=== PATIENT | male | born 1960 | race Caucasian/White ===

== ENCOUNTER → 2018-09-17 | Outpatient (CLI) | payer OTHER, SELFPAY ==
[2018-09-17 08:30] VITALS: BMI 34.4
[2018-09-17 12:36] LABS: Absolute Lymphocyte Count 2.12 X10^3/ul (0.83-4.51); Absolute Neutrophil Count 3.4 X10^3/uL (2.0-7.7); Basophil# 0.05 X10^3/uL; Basophil% 0.8 % (0-1); Eosinophil# 0.22 X10^3/uL; Eosinophils% 3.3 % (0-5); Hematocrit 44.1 % (40-54); Lymphocyte # 2.12 X10^3/ul (4.0); Lymphocyte % 32.2 % (19-41); Mean Corpuscular Hgb 30.4 pg (27.0-32.0); Mean Corpuscular Volume 89.5 fL (80-94); Monocyte# 0.76 X10^3/uL; Monocyte% 11.5 % (0-10); Neutrophil # 3.44 X10^3/uL (2.7-7.7); Neutrophil % 52.2 % (47-70); Platelet Count 221 K/mm3 (150-450); RBC Distribution Width CV 12.6 % (11.6-14.6); RBC Distribution Width SD 40.9 fl (35.1-43.9); Red Blood Count 4.93 M/mm3 (4.6-6.2); White Blood Count 6.6 K/mm3 (4.4-11.0)
[2018-09-17 12:44] LABS: POSITIVE COUNT NO; POSITIVE DIFFERENTIAL NO; POSITIVE MORPHOLOGY NO
[2018-09-17 12:45] LABS: AST(SGOT) 24 U/L (15-37); Alanine Aminotransfer ALT/SGPT 43 U/L (16-61); Albumin, Serum 3.6 g/dL (3.2-5.0); Alkaline Phosphatase 77 U/L (45-117); Anion Gap 8 (5-15); BUN 15 mg/dL (7-18); BUN/Creat Ratio 15.2 RATIO (10-20); Calcium,Total 8.3 mg/dL (8.5-10.1); Chloride 104 mmol/L (98-107); Cholesterol 152 mg/dL (200); Creatinine, Serum 0.99 mg/dL (0.70-1.30); EST Glomerular Filtration Rate 83 mL/min (>60); Est Glom Filt Rate - Afr Amer 100 mL/min (>60); Globulin 3.6 g/dL (2.2-4.2); Glucose 109 mg/dL (74-106); High Density Lipoprotein 32 mg/dL; Potassium 4.1 mmol/L (3.5-5.1); Protein, Total 7.2 g/dL (6.4-8.2); Sodium Level 137 mmol/L (136-145); Triglycerides 108 mg/dL; Very Low Density Lipoprotein 22 mg/dL (5-40)
== END | disposition home or self-care (01) ==
LOC: BIMLAB 08:54
PROVIDERS: Family Provider Family Medicine; PCP Family Medicine; Visit Provider Family Medicine
DX: G25.81 Restless legs syndrome (principal); G62.9 Polyneuropathy, unspecified
CPT/HCPCS: 36415; 80053; 80061; 85025

== ENCOUNTER → 2020-08-25 10:13 | Outpatient (CLI) | payer OTHER, SELFPAY ==
[2020-08-11 16:31] VITALS: BMI 34.4
[2020-08-25 12:45] LABS: ALB/GLOB Ratio 0.9 RATIO (0.9-2.4); AST(SGOT) 25 U/L (15-37); Alanine Aminotransfer ALT/SGPT 42 U/L (16-61); Albumin, Serum 3.5 g/dL (3.2-5.0); Alkaline Phosphatase 71 U/L (45-117); Anion Gap 6 (5-15); BUN 19 mg/dL (7-18); BUN/Creat Ratio 18.3 RATIO (10-20); Calcium,Total 8.7 mg/dL (8.5-10.1); Chloride 107 mmol/L (98-107); Creatinine, Serum 1.04 mg/dL (0.70-1.30); EST Glomerular Filtration Rate 78 mL/min (>60); Est Glom Filt Rate - Afr Amer 94 mL/min (>60); Globulin 3.8 g/dL (2.2-4.2); Glucose 125 mg/dL (74-106); Potassium 4.3 mmol/L (3.5-5.1); Protein, Total 7.3 g/dL (6.4-8.2); Sodium Level 138 mmol/L (136-145)
== END ==
PROVIDERS: PCP Family Medicine; Referring Provider Family Medicine; Visit Provider Family Medicine
DX: G25.81 Restless legs syndrome (principal)
CPT/HCPCS: 36415; 80053

== ENCOUNTER 2021-07-06 08:01 | Outpatient (CLI) | payer OTHER, SELFPAY ==
[2021-07-06 12:09] LABS: Hematocrit 44.9 % (40-54); Hemoglobin 14.8 g/dL (13.0-16.5); Mean Corpuscular Hgb 31.1 pg (27.0-32.0); Mean Corpuscular Volume 94.3 fL (80-94); Mean Platelet Vol. 9.8 fl (6.2-12.0); Platelet Count 235 K/mm3 (150-450); RBC Distribution Width CV 12.6 % (11.6-14.6); RBC Distribution Width SD 44.1 fl (35.1-43.9); Red Blood Count 4.76 M/mm3 (4.6-6.2); White Blood Count 7.6 K/mm3 (4.4-11.0)
[2021-07-06 12:27] LABS: Vitamin B12 582 pg/mL (211-911)
[2021-07-06 12:34] LABS: ALB/GLOB Ratio 0.9 RATIO (0.9-2.4); AST(SGOT) 22 U/L (15-37); Alanine Aminotransfer ALT/SGPT 44 U/L (16-61); Albumin, Serum 3.5 g/dL (3.2-5.0); Alkaline Phosphatase 68 U/L (45-117); Anion Gap 3 (5-15); BUN 19 mg/dL (7-18); BUN/Creat Ratio 18.3 RATIO (10-20); Calcium,Total 8.2 mg/dL (8.5-10.1); Chloride 107 mmol/L (98-107); Creatinine, Serum 1.04 mg/dL (0.70-1.30); EST Glomerular Filtration Rate 77 mL/min (>60); Est Glom Filt Rate - Afr Amer 94 mL/min (>60); Ferritin 28 ng/mL (26-388); Globulin 3.8 g/dL (2.2-4.2); Glucose 103 mg/dL (74-106); Iron 120 ug/dL (65-175); Magnesium 2.1 mg/dL (1.6-2.6); Potassium 4.2 mmol/L (3.5-5.1); Protein, Total 7.3 g/dL (6.4-8.2); Sodium Level 138 mmol/L (136-145); Thyroid Stim Hormone (TSH) 4.16 uIU/mL (0.358-3.74)
== END 2021-07-06 23:59 | disposition home or self-care (01) ==
LOC: BIMLAB 08:02
PROVIDERS: PCP Family Medicine; Referring Provider Psychiatry & Neurology Neurology; Visit Provider Psychiatry & Neurology Neurology
DX: G25.81 Restless legs syndrome (principal); Z86.2 Personal history of diseases of the blood and blood-forming organs and certain disorders involving the immune mechanism
CPT/HCPCS: 36415; 80053; 82607; 82728; 83540; 83735; 84443; 85027

== ENCOUNTER → 2021-12-21 | Outpatient (CLI) | payer BC, SELFPAY ==
[2021-12-21 13:37] LABS: Cholesterol 153 mg/dL (200); High Density Lipoprotein 32 mg/dL; Triglycerides 126 mg/dL; Very Low Density Lipoprotein 25 mg/dL (5-40)
[2021-12-21 13:53] LABS: T4 Free Direct 1.02 ng/dL (0.76-1.46); Thyroid Stim Hormone (TSH) 2.26 uIU/mL (0.358-3.74)
== END | disposition home or self-care (01) ==
LOC: BIMLAB 10:48
PROVIDERS: Nurse Practitioner Family; PCP Family Medicine; Referring Provider Psychiatry & Neurology Neurology; Visit Provider Psychiatry & Neurology Neurology
DX: E78.5 Hyperlipidemia, unspecified (principal); Z12.5 Encounter for screening for malignant neoplasm of prostate; R79.89 Other specified abnormal findings of blood chemistry
CPT/HCPCS: 36415; 80061; 84153; 84439; 84443; G0103

== ENCOUNTER → 2022-03-13 | Outpatient (CLI) | payer BC, SELFPAY ==
--- NOTE | 2022-03-13 09:13 | RAD_ITS ---
EXAM: XR RIGHT KNEE, 3 VIEWS CLINICAL INDICATION: pain in knees TECHNIQUE: Three views of the right knee. This report was created using [employer] report generation technology. COMPARISON: None. FINDINGS: BONES/JOINTS: Unremarkable. No acute fracture. No subluxation. Normal alignment. Preservation of the joint space. No sclerotic or destructive changes observed. SOFT TISSUES: Unremarkable. No soft tissue swelling or gas. No radiopaque foreign body. RAD/Knee 3 Views IMPRESSION: Negative right knee x-rays. Electronically Signed: Reynaldo Ames MD at 1:18 EST ,
--- NOTE | 2022-03-13 09:14 | RAD_ITS ---
EXAM: XR LEFT KNEE, 3 VIEWS CLINICAL INDICATION: Bilateral knee pain TECHNIQUE: Three views of the left knee. This report was created using [employer] report generation technology. COMPARISON: None. FINDINGS: BONES/JOINTS: Unremarkable. No acute fracture. No subluxation. Normal alignment. Preservation of the joint space. No sclerotic or destructive changes observed. SOFT TISSUES: Unremarkable. No soft tissue swelling or gas. No radiopaque foreign body. RAD/Knee 3 Views IMPRESSION: Negative left knee x-rays. Electronically Signed: Reynaldo Ames MD at 1:19 EST ,
== END | disposition home or self-care (01) ==
PROVIDERS: PCP Family Medicine; Referring Provider Psychiatry & Neurology Neurology; Visit Provider Psychiatry & Neurology Neurology
DX: M25.561 Pain in right knee (principal); M25.562 Pain in left knee
CPT/HCPCS: 73562

== ENCOUNTER → 2022-07-18 | Outpatient (CLI) | payer BC, SELFPAY ==
--- NOTE | 2022-07-18 13:30 | RAD_ITS ---
INDICATION: chronic cough EXAMINATION/TECHNIQUE: X-RAY - XR Chest 2 Views COMPARISON: None. FINDINGS: LINES/DEVICES: None. LUNGS: No consolidation, edema or effusion. No pneumothorax. MEDIASTINUM AND CARDIOVASCULAR STRUCTURES: Cardiac silhouette not enlarged. Central airways and mediastinal contour are unremarkable. BONES AND SOFT TISSUES: No acute findings. RAD/Chest PA and Lateral IMPRESSION: No radiographic evidence of acute cardiopulmonary disease. Electronically Signed: Bhavesh Grey MD at 17:01 EDT ,
== END | disposition home or self-care (01) ==
LOC: MTRAD 13:28
PROVIDERS: PCP Family Medicine; Referring Provider Family Medicine; Visit Provider Family Medicine
DX: R05.3 Chronic cough (principal)
CPT/HCPCS: 71046

== ENCOUNTER → 2024-05-14 | Outpatient (CLI) | payer BC, SELFPAY ==
--- NOTE | 2024-05-14 16:21 | RAD_ITS ---
PROCEDURE: Right foot radiographs REASON FOR EXAM: Pain TECHNIQUE: Three views of the right foot COMPARISON: None FINDINGS: See impression RAD/Foot min 3 Views IMPRESSION: Negative for acute fracture or malalignment. 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 No suspicious erosions. Reading Location: [facility]
--- NOTE | 2024-05-14 16:30 | RAD_ITS ---
PROCEDURE: Left foot radiographs REASON FOR EXAM: Pain TECHNIQUE: Three views of the left foot COMPARISON: None. FINDINGS: See impression RAD/Foot min 3 Views IMPRESSION: Negative for acute fracture or malalignment. Mild 1st MTP joint osteoarthritis . Mild posterior calcaneal enthesopathy. Reading Location: [facility]
== END | disposition home or self-care (01) ==
LOC: MTRAD 16:21
PROVIDERS: PCP Family Medicine; Referring Provider Family Medicine; Visit Provider Family Medicine
DX: M20.42 Other hammer toe(s) (acquired), left foot (principal)
CPT/HCPCS: 73630

== ENCOUNTER → 2024-07-01 | Outpatient (CLI) | payer BC, SELFPAY ==
--- NOTE | 2024-07-01 10:04 | EKG12_ITS ---
Test Reason : ARRITHYMIA Blood Pressure : */* mmHG Vent. Rate : 67 BPM Atrial Rate : 67 BPM P-R Int : 184 ms QRS Dur : 92 ms QT Int : 430 ms P-R-T Axes : 14 9 -9 degrees QTcB Int : 454 ms Sinus rhythm with Possible Premature atrial complexes with Aberrant conduction Moderate voltage criteria for LVH, may be normal variant Inferior infarct , age undetermined Abnormal ECG Confirmed by ROSEMARY FALCON, HAMIDA ([id number]), editor house organ JAMMIE GOODWIN ([id number]) on 07/02/2024 6:37:18 AM Referred By: Zion Thrasher Confirmed By: HAMIDA RILEY MD
[2024-07-01 12:22] LABS: Hematocrit 42.4 % (40-54); Hemoglobin 14.3 g/dL (13.0-16.5); Mean Corp Hgb Conc 33.7 g/dL (32-36); Mean Corpuscular Hgb 30.9 pg (27.0-32.0); Mean Corpuscular Volume 91.6 fL (80-94); Mean Platelet Vol. 9.5 fl (6.2-12.0); Platelet Count 208 K/mm3 (150-450); RBC Distribution Width CV 12.5 % (11.6-14.6); RBC Distribution Width SD 41.8 fl (35.1-43.9); Red Blood Count 4.63 M/mm3 (4.6-6.2); White Blood Count 6.8 K/mm3 (4.4-11.0)
[2024-07-01 13:04] LABS: ALB/GLOB Ratio 1.3 RATIO (0.9-2.4); AST(SGOT) 25 U/L (<=37); Alanine Aminotransfer ALT/SGPT 29 U/L (<=46); Albumin, Serum 3.9 g/dL (3.4-4.8); Alkaline Phosphatase 68 U/L (40-129); Anion Gap 10 (5-15); BUN 16 mg/dL (4-19); BUN/Creat Ratio 16.2 RATIO (10-20); Calcium,Total 8.8 mg/dL (7.6-11.0); Carbon Dioxide 23.7 mmol/L (21.0-32.0); Chloride 103 mmol/L (98-108); Cholesterol 140 mg/dL (<=200); Creatinine, Serum 0.99 mg/dL (0.70-1.20); EST Glomerular Filtration Rate 86 (>60); Ferritin 64 ng/mL (37-417); Glucose 108 mg/dL (70-99); High Density Lipoprotein 34 mg/dL; Low Density Lipoprotein Calc. 88 mg/dL; Potassium 4.1 mmol/L (3.3-5.1); Protein, Total 6.8 g/dL (5.9-8.4); Sodium Level 137 mmol/L (133-145); Triglycerides 91 mg/dL; Very Low Density Lipoprotein 18 mg/dL (5-40); cholesterol:hdl ratio screen 4.13
[2024-07-01 14:16] LABS: Iron 91 ug/dL (65-175)
[2024-07-02 12:08] LABS: PSA, Total 0.7 ng/mL (0.0-4.0)
== END | disposition home or self-care (01) ==
LOC: PSN 08:37
PROVIDERS: PCP Family Medicine; Referring Provider Psychiatry & Neurology Neurology; Visit Provider Psychiatry & Neurology Neurology
DX: I49.9 Cardiac arrhythmia, unspecified (principal); G25.81 Restless legs syndrome; R39.15 Urgency of urination; R06.09 Other forms of dyspnea; R94.31 Abnormal electrocardiogram [ECG] [EKG]
CPT/HCPCS: 36415; 80053; 80061; 82728; 83540; 84153; 84443; 85027; 93005

== ENCOUNTER → 2024-09-24 | Outpatient (CLI) | payer BC, SELFPAY ==
--- NOTE | 2024-09-24 10:11 | STE_ITS ---
Reason For Study Reason For Study: ABN. ECG, DYSPNEA Stress Results Protocol: [facility] Protocol Maximum Predicted HR: 157 bpm Target HR: 133 bpm % Maximum Predicted HR: 87 % DurationHeart Rate Stage (mm:ss) (bpm) BP BASELINE 62 122/84 STAGE 1 3:00 103 180/82 STAGE 2 3:00 113 184/88 STAGE 3 3:00 136 206/90 RECOVERY 75 140/82 Stress Duration: 9:00 mm:ss Maximum Stress HR: 136 bpm Baseline Echocardiogram Findings Stress Echo Wall motion Data Resting WM Intermediate WM Stress WM Doppler Measurements & Calculations TR max kenya: 264.6 cm/sec TR max P.0 mmHg ECHO/Stress Test Echo w/o Contrast Interpretation Summary Exercise stress echocardiogram. 63-year-old man with a history of dyspnea. Resting EKG demonstrates sinus bradycardia with a rate of 54 bpm normal interva ls are noted resting blood pressure is 122/84 mmHg. The patient exercised according to regular [facility] protocol for tota l duration of 9 minutes. The maximum heart rate attained was 10 and 37 bpm which was 87% of max impacted heart rate the maximum workload was 10.4 metabolic equivalents. At rest there were no ST or T wave changes noted suggest ischemia and at peak exercise upsloping ST changes were noted with no meet any criteria for ischemia. The peak blood pressure was 220/80 mmHg which was a hypertensive blood pressure response to exercise the rate-pressure product of 27,600. No cli nical angina was noted the test was terminated due to target heart rate being achieved. Stress echocardiogram. The resting echocardiogram demonstrated preserved left ventricular systolic fun ction estimated ejection fraction was 60%. No wall motion abnormalities were noted. The patient exercised and at peak exercise thickening of all messina were noted with reduction of the ventricular cavity size. Peak ejection fraction was 65%. Conclusion: Exercise stress echocardiogram with no EKG or echocardiographic criteria for is chemia. Preserved ejection fraction. Good functional capacity. Ordering Physician: Wilber^Humberto^R^^DO Referring Physician: Humberto Merino Performed By: Chadwick Vogt RCS
--- OUTSIDE RECORDS SUMMARY | 2024-09-24 21:05 | XMS RPT_ITS | CCD ---
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 Status: Chronic Qualifiers: Insomnia type: primary Qualified Code(s): F51.01 - Primary insomnia Orders: Orders CBC-Complete Blood Cnt No Diff Today G25.81 - Restless legs syndrome Comprehensive Metabolic Profil Today G25.81 - Restless legs syndrome Lipid Profile Today R06.09 - Other forms of dyspnea Thyroid Stim Hormone (TSH) Today G25.81 - Restless legs syndrome Iron Today G25.81 - Restless legs syndrome Ferritin Today G25.81 - Restless legs syndrome PSA Serial Monitor Today R39.15 - Urgency of urination 12 Lead EKG Today I49.9 - Cardiac arrhythmia, unspecified Medications: Changed From pramipexole 2 mg (2 x 1 mg) PO QHS 180 tabs 3RF To pramipexole Take 1 tablet orally every morning, 1 tablet every mid-day and 2 tablets nightly 360 tabs 2RF From trazodone Take 1 to 1 1/2 tablets orally nightly 135 tabs 2RF To trazodone Take 1 1/2 tablets orally nightly 135 tabs 2RF Refilled gabapentin 300 mg PO QHS 90 caps 2RF trazodone Take 1 to 1 1/2 tablets orally nightly 135 tabs 2RF (more content not included)... Normal [facility] Foot min 3 Viewson 5 Foot min 3 Views [facility] Imaging Services [address] [place] [address] (280) Foot min 3 Views MR#: [id number] Acct: [id number] Name: DAYAN MUNSONIOTT Rep #: [id number] : 1960 M 63 From: Bradley Noriega PCP: Dr. Alicia Merino DO Status: REG CLI Study: Foot min 3 Views Date of Exam: 05/14/24 Exam# [id number] Ordering Dr: Alicia Merino DO PROCEDURE: Left foot radiographs REASON FOR EXAM: Pain TECHNIQUE: Three views of the left foot COMPARISON: None. FINDINGS: See impression RAD/Foot min 3 Views IMPRESSION: Negative for acute fracture or malalignment. Mild 1st MTP joint osteoarthritis. Mild posterior calcaneal enthesopathy. Reading Location: [facility] CC: Dr. Alicia Merino DO Aix Administrator: Signed Normal [facility] Foot min 3 Views [facility] Imaging Services [address] [place] [address] [id number] Foot min 3 Views MR#: [id number] Acct: [id number] Name: DAYAN MUNSON Rep #: [id number] : 1960 M 63 From: Bradley Noriega PCP: Dr. Alicia Merino, Status: REG CLI Study: Foot min 3 Views Date of Exam: 05/14/24 Exam# [id number] Ordering Dr: Alicia Merino DO PROCEDURE: Right foot radiographs REASON FOR EXAM: Pain TECHNIQUE: Three views of the right foot COMPARISON: None FINDINGS: See impression RAD/Foot min 3 Views IMPRESSION: Negative for acute fracture or malalignment. 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 No suspicious erosions. Reading Location: [facility] CC: Dr. Alicia Merino DO Aix Administrator: Signed Normal [facility] Internal Medicine Office Vis iton 05-14-2024 Internal Medicine Office Visit [facility] [address] [place] [address] [place] [address] OFFICE VISIT Date of Service: 05/14/24 MR#: [id number] Acct: [id number] Name: DAYAN MUNSON Rep #: [id number] : 1960 Provider: Dr. Alicia R Br own, DO Age/Sex: 63/M Location[place] [facility] [place] Status: Signed Intake Vital Signs 01/04/24 08:24 05/14/24 15:38 Height 5 ft 11 in 5 ft 11 in Weight: 250 lb 6 oz 256 lb BMI 34.9 35.6 BP 122/78 H 124/74 H Blood Pressure Location Lt brachial Lt brachial Position Sitting Sitting Respiration 16 16 Pulse 66 68 Pulse Source Monitor Monitor Temp 97.8 F 96.9 F L Temp Source Temporal Temporal Pulse Oximetry (%) 96 99 Oxygen Delivery Method room air room air Intake Visit Reasons: LEFT FOOT PAIN Chief Complaint: lio foot pain Sushi Chef Required: No Accompanied by: Self Is patient in pain?: No Allergies guaifenesin (From Entex [place]) Allergy (Severe, Verified 05/14/24 15:36) Rash Penicillins Allergy (Severe, Verified 05/14/24 15:36) rash phenylephrine (From [employer] [place]) Allergy (Severe, Verified 05/14/24 15:36) Rash phenylpropanolamine (From [employer] [place]) Allergy (Severe, Verified 05/14/24 15:36) Rash Sulfa (Sulfonamide Antibiotics) Allergy (Severe, Verified 05/14/24 15:36) rash Medications ???Medication ???Instructions ???Recorded ???Confirmed ???Type esomeprazole magnesium 20 mg 20 mg PO QDAY 06/21/17 05/14/24 Hi story capsule,delayed release (Nexium) cyclobenzaprine 10 mg tablet 10 mg PO Q8H PRN muscle spasm 03/0205/14/24 History multivit,calc,mins-folic 240 See Rx Instructions PO DAILY 05/2605/14/24 History mcg-vit K1 30 mcg-lycopene 300 mcg tablet (One-A-Day Men's Complete) diclofenac sodium 75 mg 75 mg PO ONCE PRN 03/13/22 5 History tablet,delayed release fluticasone propionate 50 2 spray intranasal DAILY #16 mL 05/14/24 Rx mcg/actuation nasal spray,suspension gabapentin 300 mg capsule 300 mg PO QHS #90 caps 07/31/23 Rx pramipexole 0.5 mg tablet 0.5 mg PO BID #180 tabs 07/31/23 0 05/14/24 Rx pramipexole 1 mg tablet 2 mg (2 x 1 mg) PO QHS #180 tabs 0 07/31/23 05/14/24 Rx trazodone 50 mg tablet 50 mg PO .COMPLEX #135 tabs 05/14/24 Rx azithromycin 250 mg tablet See Rx Instructions PO .COMPLEX #6 12/02/23 05/14/24 Rx tabs sertraline 100 mg tablet 100 mg PO DAILY #90 TABLETS 05/14/24 Rx Have you fallen in the past year?: No Nurse's Note: spot on right neck [facility] Medical History Vision problems Carpal tunnel syndrome Bone fracture GERD (gastroesophageal reflux disease) Depression Restless leg syndrome Neuropathy Seasonal allergies Chronic back pain Surgical History H/O toe surgery Deviated septum Status post wrist surgery History of neck surgery Family History Mother Respiratory abnormalities blood clots Father Environmental allergies Brother Thyroid disorder Diabetes Grandfather Myocardial infarction Social History Smoking Status: Never smoker alcohol intake: never substance use type: does not use what type of physical activity do you participate in: none ovi/orthodoxy: Congregation seatbelt use: always HPI HPI Chief Complaint: lio foot pain Details: DAYAN MUNSON, is a 63 M who presents to the office today for Pain in both feet, forefoot of left foot, heel of the right foot. ROS Const Constitutional: No body ache, excessive sweating, fatigue, fever(s), frequent falls, headache(s), snoring, weakness, weight change, sleep problems or change in appetite Eyes Eyes: No blurry vision, change in vision, eye pain or Light sensitivity ENT ENT: No abnormal hearing, ear or mastoid pain, tinnitus, nasal congestion, headache(s), neck pain or sore throat Resp Respiratory: No cough, shortness of breath, snoring or wheezing Cardio Cardiology: No chest pain at rest, chest pain with exertion, excessive sweating, shortness of breath, dyspnea on exertion, lightheadedness, orthopnea or palpitations Gastro GI: No abdominal pain, change in bowel habits, constipation, cramping, diarrhea, nausea/dyspepsia or vomiting Genitourinary Male: No burning urination, painful urination, urinary incontinence, urinary frequency or blood in urine Musc Musculoskeletal: No abnormal gait, joint pain, back pain, limited range of motion, neck pain, numbness, stiffness, tingling or Arthritis Skin Skin: No dry skin, redness, lesions, itchy eyes, rash or wounds Neuro Neurology: No abnormal gait, abnormal hearing, abnormal speech, dizziness, weakness, frequent falls, headache(s), (more content not included)... Normal [facility] Internal Medicine Office Vis itoanita 01-04-2024 Internal Medicine Office Visit [facility] [address] [place] [address] [place] [address] OFFICE VISIT Date of Service: 01/04/24 MR#: [id number] Acct: [id number] Name: DAYAN MUNSON Rep #: [id number] : 1960 Provider: YA Patino Age/Sex: 63/M Location[place] [facility] [place] Status: Signed Intake Vital Signs 12/05/23 15:39 01/04/24 08:24 Height 5 ft 11 in 5 ft 11 in Weight: 253 lb 250 lb 6 oz BMI 35.2 34.9 BP 122/78 H 122/78 H Blood Pressure Location Lt brachial Lt brachial Position Sitting Sitting Respiration 14 16 Pulse 70 66 Pulse Source Monitor Monitor Temp 98.5 F 97.8 F Temp Source Temporal Temporal Pulse Oximetry (%) 96 96 Oxygen Delivery Method room air room air Intake Visit Reasons: TRIGGER FINGER Chief Complaint: triger finger Sushi Chef Required: No Accompanied by: Self Is patient in pain?: No Allergies guaifenesin (From [employer]tex [place]) Allergy (Severe, Verified 01/04/24 08:21) Rash Penicillins Allergy (Severe, Verified 01/04/24 08:21) rash phenylephrine (From [employer] [place]) Allergy (Severe, Verified 01/04/24 08:21) Rash phenylpropanolamine (From [employer] [place]) Allergy (Severe, Verified 01/04/24 08:21) Rash Sulfa (Sulfonamide Antibiotics) Allergy (Severe, Verified 01/04/24 08:21) rash Medications ???Medication ???Instructions ???Recorded ???Confirmed ???Type esomeprazole magnesium 20 mg 20 mg PO QDAY 06/21/17 01/04/24 History capsule,delayed release (Nexium) cyclobenzaprine 10 mg tablet 10 mg PO Q8H PRN muscle spasm 03/19/19 01/04/24 History multivit,calc,mins-folic 240 See Rx Instructions PO DAILY 05/26/21 01/04/24 History mcg-vit K1 30 mcg-lycopene 300 mcg tablet (One-A-Day Men's Complete) diclofenac sodium 75 mg 75 mg PO ONCE PRN 03/13/22 01/04/24 History tablet,delayed release fluticasone propionate 50 2 spray intranasal DAILY #16 mL 08/09/22 01/04/24 Rx mcg/actuation nasal spray,suspension gabapentin 300 mg capsule 300 mg PO QHS #90 caps 07/31/23 01/04/24 Rx pramipexole 0.5 mg tablet 0.5 mg PO BID #180 tabs 07/31/23 01/04/24 Rx pramipexole 1 mg tablet 2 mg (2 x 1 mg) PO QHS #180 tabs 07/31/23 01/04/24 Rx trazodone 50 mg tablet 50 mg PO .COMPLEX #135 tabs 07/31/23 01/04/24 Rx azithromycin 250 mg tablet See Rx Instructions PO .COMPLEX #6 12/02/23 01/04/24 Rx tabs sertraline 100 mg tablet 100 mg PO QDAY #90 tabs 12/05/23 01/04/24 Rx PFSH Medical History Vision problems Carpal tunnel syndrome Bone fracture GERD (gastroesophageal reflux disease) Depression Restless leg syndrome Neuropathy Seasonal allergies Chronic back pain Surgical History H/O toe surgery Deviated septum Status post wrist surgery History of neck surgery Family History Mother Respiratory abnormalities blood clots Father Environmental allergies Brother Thyroid disorder Diabetes Grandfather Myocardial infarction Social History Smoking Status: Never smoker alcohol intake: never substance use type: does not use what type of physical activity do you participate in: none ovi/orthodoxy: Congregation seatbelt use: always HPI HPI Chief Complaint: triger finger Details: DAYAN MUNSON, is a 63 M who presents to the office today for an injection for a left ring finger trigger finger. Patient states that he has had multiple trigger fingers in the past and has had an injection previously. On this ring finger he states has been locking for quite a long time but has progressively worsened and is now tender when it locks and when he has to straighten it. Patient has not had any swelling, erythema, or any changes of the skin. ROS Const Constitutional: No body ache, chills, excessive sweating, fatigue, fever(s), frequent falls, headache(s), snoring, weakness or change in appetite Eyes Eyes: No blurry vision, change in vision, eye pain or Light sensitivity ENT ENT: No abnormal hearing, ear or mastoid pain, tinnitus, nasal congestion, headache(s), neck pain or sore throat Resp Respiratory: No cough, shortness of breath, snoring or wheezing Cardio Cardiology: No chest pain at rest, chest pain with exertion, excessive sweating, dyspnea on exertion, lightheadedness, orthopnea or palpitations Gastro GI: No abdominal pain, change in bowel habits, constipation, cramping, diarrhea, nausea/dyspepsia or vomiting Genitourinary Male: No burning urination, painful urination, urinary incontinence or urinary frequency Musc Musculoskeletal: No abnormal gait, joint pain, back pain, limited range of motion, muscle weakness, neck pain or numbness Skin Skin: No dry skin, redness, lesions, itchy eyes, rash or (more content not included)... Normal [facility] Internal Medicine Office Vis iton 12-05-2023 Internal Medicine Office Visit [facility] [address] [place], [place] [address] OFFICE VISIT Date of Service: 12/05/23 MR#: [id number] Acct: [id number] Name: DAYAN MUNSON Rep #: [id number] : 1960 Provider: Dr. Alicia son, DO Age/Sex: 62/M Location: [facility] [place] Status: Signed Intake Vital Signs 07/31/23 13:24 12/05/23 15:39 Height 5 ft 11 in 5 ft 11 in Weight: 253 lb 10 oz 253 lb BMI 35.4 35.2 BP 116/80 122/78 H Blood Pressure Location Lt brachial Lt brachial Position Sitting Sitting Respiration 17 14 Pulse 75 70 Pulse Source Monitor Monitor Temp 98.2 F 98.5 F Temp Source Temporal Temporal Pulse Oximetry (%) 97 96 Oxygen Delivery Method room air room air Intake Visit Reasons: wants moles removed Chief Complaint: Sushi Chef Required: No Is patient in pain?: No Allergies guaifenesin (From [employer]tex [place]) Allergy (Severe, Verified 12/05/23 15:35) Rash Penicillins Allergy (Severe, Verified 12/05/23 15:35) rash phenylephrine (From [employer] [place]) Allergy (Severe, Verified 12/05/23 15:35) Rash phenylpropanolamine (From [employer] [place]) Allergy (Severe, Verified 12/05/23 15:35) Rash Sulfa (Sulfonamide Antibiotics) Allergy (Severe, Verified 12/05/23 15:35) rash Medications ???Medication ???Instructions ???Recorded ???Confirmed ???Type esomeprazole magnesium 20 mg 20 mg PO QDAY 06/21/17 12/05/23 History capsule,delayed release (Nexium) cyclobenzaprine 10 mg tablet 10 mg PO Q8H PRN muscle spasm 03/19/19 12/05/23 History multivit,calc,mins-folic 240 See Rx Instructions PO DAILY 05/26/21 12/05/23 History mcg-vit K1 30 mcg-lycopene 300 mcg tablet (One-A-Day Men's Complete) diclofenac sodium 75 mg 75 mg PO ONCE PRN 03/13/22 12/05/23 History tablet,delayed release fluticasone propionate 50 2 spray intranasal DAILY #16 mL 08/09/22 12/05/23 Rx mcg/actuation nasal spray,suspension gabapentin 300 mg capsule 300 mg PO QHS #90 caps 07/31/23 12/05/23 Rx pramipexole 0.5 mg tablet 0.5 mg PO BID #180 tabs 07/31/23 12/05/23 Rx pramipexole 1 mg tablet 2 mg (2 x 1 mg) PO QHS #180 tabs 07/31/23 12/05/23 Rx trazodone 50 mg tablet 50 mg PO .COMPLEX #135 tabs 07/31/23 12/05/23 Rx azithromycin 250 mg tablet See Rx Instructions PO .COMPLEX #6 12/02/23 12/05/23 Rx tabs sertraline 100 mg tablet 100 mg PO QDAY #90 tabs 12/05/23 12/05/23 Rx Nurse's Note: States he has some skin tags on R side of neck that he wants removed. States he is not sleeping at night is not getting good quality of sleep. He has L handed trigger finger which is causing him issues. [facility] Medical History Vision problems Carpal tunnel syndrome Bone fracture GERD (gastroesophageal reflux disease) Depression Restless leg syndrome Neuropathy Seasonal allergies Chronic back pain Surgical History H/O toe surgery Deviated septum Status post wrist surgery History of neck surgery Family History Mother Respiratory abnormalities blood clots Father Environmental allergies Brother Thyroid disorder Diabetes Grandfather Myocardial infarction Social History Smoking Status: Never smoker alcohol intake: never substance use type: does not use what type of physical activity do you participate in: none ovi/orthodoxy: Congregation seatbelt use: always HPI HPI Chief Complaint: Details: DAYAN MUNSON, is a 62 M who presents to the office today for patch of skin tags on the right side and left side of his neck that he would like treated. He also has concerns about insomnia and concerns that he needs his antidepressants refilled. In addition he has a trigger finger on his left hand the ring finger that he wants injected but I told him I would be unable to do both surgical procedures at the same time. ROS Const Constitutional: No body ache, chills, excessive sweating, fatigue, fever(s), frequent falls, headache(s), snoring, weakness, sleep problems or change in appetite Eyes Eyes: No blurry vision, change in vision, eye pain or Light sensitivity ENT ENT: No abnormal hearing, ear or mastoid pain, tinnitus, nasal congestion, headache(s), neck pain or sore throat Resp Respiratory: No cough, shortness of breath, snoring or wheezing Cardio Cardiology: No chest pain at rest, chest pain with exertion, excessive sweating, shortness of breath, dyspnea on exertion, lightheadedness, orthopnea or palpitations Gastro GI: No abdominal pain, change in bowel habits, constipation, cramping, diarrhea, nausea/dyspepsia or vomiting Genitourinary Male: No burning urination, painful urination, urinary (more content not included)... Normal [facility] Urgent Care Visit Reporton 0 12-02-2023 Urgent Care Visit Report [facility] [address], [address] [place] [address] OFFICE VISIT Date of Service: 12/02/23 MR#: [id number] Acct: [id number] Name: DAYAN MUNSON Rep #: [id number] : 1960 Provider: YA Yoon Age/Sex: 62/M Location: [facility] [place] Status: Signed Intake Vital Signs 07/31/23 13:24 Height 5 ft 11 in Weight: 253 lb 10 oz BMI 35.4 BP 116/80 Blood Pressure Location Lt brachial Position Sitting Respiration 17 Pulse 75 Pulse Source Monitor Temp 98.2 F Temp Source Temporal Pulse Oximetry (%) 97 Oxygen Delivery Method room air Intake Visit Reasons: Cough Chief Complaint: Allergies guaifenesin (From [employer]tex [place]) Allergy (Severe, Verified 12/02/23 09:29) Rash Penicillins Allergy (Severe, Verified 12/02/23 09:29) rash phenylephrine (From [employer] [place]) Allergy (Severe, Verified 12/02/23 09:29) Rash phenylpropanolamine (From [employer] [place]) Allergy (Severe, Verified 12/02/23 09:29) Rash Sulfa (Sulfonamide Antibiotics) Allergy (Severe, Verified 12/02/23 09:29) rash Medications ???Medication ???Instructions ???Recorded ???Confirmed ???Type esomeprazole magnesium 20 mg 20 mg PO QDAY 06/21/17 12/02/23 History capsule,delayed release (Nexium) cyclobenzaprine 10 mg tablet 10 mg PO Q8H PRN muscle spasm 03/19/19 12/02/23 History multivit,calc,mins-folic 240 See Rx Instructions PO DAILY 05/26/21 12/02/23 History mcg-vit K1 30 mcg-lycopene 300 mcg tablet (One-A-Day Men's Complete) diclofenac sodium 75 mg 75 mg PO ONCE PRN 03/13/22 12/02/23 History tablet,delayed release fluticasone propionate 50 2 spray intranasal DAILY #16 mL 08/09/22 12/02/23 Rx mcg/actuation nasal spray,suspension sertraline 100 mg tablet 100 mg PO QDAY #90 tabs 06/21/23 12/02/23 Rx gabapentin 300 mg capsule 300 mg PO QHS #90 caps 07/31/23 12/02/23 Rx pramipexole 0.5 mg tablet 0.5 mg PO BID #180 tabs 07/31/23 12/02/23 Rx pramipexole 1 mg tablet 2 mg (2 x 1 mg) PO QHS #180 tabs 07/31/23 12/02/23 Rx trazodone 50 mg tablet 50 mg PO .COMPLEX #135 tabs 07/31/23 07/31/23 Rx azithromycin 250 mg tablet See Rx Instructions PO .COMPLEX #6 12/02/23 12/02/23 Rx tabs PFSH Medical History Bone fracture Carpal tunnel syndrome Chronic back pain Depression GERD (gastroesophageal reflux disease) Neuropathy Restless leg syndrome Seasonal allergies Vision problems Surgical History Deviated septum H/O toe surgery History of neck surgery Status post wrist surgery Family History Mother Respiratory abnormalities blood clots Father Environmental allergies Brother Thyroid disorder Diabetes Grandfather Myocardial infarction Social History Smoking Status: Never smoker alcohol intake: never substance use type: does not use what type of physical activity do you participate in: none ovi/orthodoxy: Congregation seatbelt use: always HPI HPI Chief Complaint: Details: DAYAN MUNSON, is a 62 M who presents to the office today for Cough. Patient states he has had a unproductive cough for about a month. Patient states it comes and goes and that he does have a little tightness in his chest. Patient states he does have allergies. Patient is waiting in to see Dr Merino (PCP). Patient states his cough has recently become productive of mucoid like sputum with the use of OTC Mucinex. Patient states he does have a history of coughing around this time of year which usually resolves spontaneously without intervention. Patient notes concern for current symptoms due to extended duration despite use of typical conservative care. Patient denies symptoms of shortness of breath, dyspnea, orthopnea, chest pain, and dizziness. Patient denies contact with other individuals with similar symptoms prior to symptom onset. ROS Const Constitutional: No chills or fever(s) Resp Respiratory: Positive for cough and chest congestion; No excessive phlegm production, shortness of breath or wheezing Cardio Cardiology: No chest pain at rest, chest pain with exertion, dyspnea on exertion, irregular heart rhythm or palpitations Aller/Imm Allergy/Immunologic: No seasonal allergy symptoms or wheezing Exam Const General: cooperative and no acute distress Neck Lymphatic: no lymphadenopathy noted Resp Auscultation: Bilateral: Crackles (Faint on inspiration, lung bases) Cardio Rate: regular rate Rhythm: regular rhythm Heart Sounds: S1 normal and S2 normal Coding Level of Care Code New Pt Off vis,new,level 3 Patient Type New History Expanded Problem Focused Exam Problem Focused Medical Decision Tammy (more content not included)... Normal [facility] Basophil percentageon 2021 Cholesterol [Mass/Vol] 153 mg/dL <200 [facility] Work Phone: Comment on above: <200 mg/dL Desirable 200-240 mg/dL Borderline >240 mg/dL High Risk Triglyceride [Mass/Vol] 126 mg/dL <199 [facility] Work Phone: Comment on above: The drugs N-Acetylcy steine and Metamizole may falsely depress this assay.Serum Triglycerides Reference Interval Normal <150 mg/dL Borderline high 150 - 199 mg/dL High 200 - 499 mg/dL Very High > or = 500 mg/dL Laboratory - Chemistry and C hemistry - challengeon 12-21-2021 Free T4 [Mass/Vol] 1.02 ng/dL 0.76-1.46 [facility] Work Phone: No Panel Informationon 12-21 Prostate Specific Antigen Screen 0.80 ng/mL 0.00-4.00 [facility] Work Phone: Comment on above: This test was perfor med using the TPSA assay method for [facility]. Values obtained with differentassay methods cannot be used interchangably.When changing PSA assays in the course of monitoring apatient, additional sequential testing should be carriedout to confirm baseline values. Thyroid Stimulating Hormone (TSH) 2.26 uIU/mL 0.358-3.74 [facility] Work Phone: Serum or plasma cholesterol in HDL measurement (mass/volume)on 12-21-2021 Cholesterol in HDL [Mass/Vol] 32 mg/dL >40 [facility] Work Phone: Comment on above: The drugs N-Acetylcy steine and Metamizole may falsely depress this assay. Reference Range HDL <40 mg/dL Low HDL Cholesterol HDL >or= 60 mg/dL High HDL Cholesterol Serum or plasma cholesterol in VLDL measurement (mass/volume)on 12-21-2021 Cholesterol in VLDL [Mass/Vol] 25 mg/dL 5-40 [facility] Work Phone: Serum or plasma low density lipoprotein (LDL) cholesterol measurement (mass/volume)on 12-21-2021 Cholesterol in LDL [Mass/Vol] 96 mg/dL 0-130 [facility] Work Phone: Basophil percentageon -2021 Bilirubin [Mass/Vol] 0.60 mg/dL 0.20-1.00 [facility] Work Phone: Comment on above: For patients on eltr ombopag therapy, use of Dimension [place] TBIL is not recommended. Chloride [Moles/Vol] 107 mmol/L 98-107 [facility] Work Phone: Glucose [Mass/Vol] 103 mg/dL 74-106 [facility] Work Phone: Comment on above: Fasting Glucose resu lt from 100 to 125 mg/dL suggests IMPAIRED HOMEOSTASIS per A.D.A. criteria. Potassium [Moles/Vol] 4.2 mmol/L 3.5-5.1 [facility] Work Phone: Protein [Mass/Vol] 7.3 g/dL 6.4-8.2 [facility] Work Phone: [phone] Sodium [Moles/Vol] 138 mmol/L 136-145 [facility] Work Phone: [phone] WBC (Bld) [#/Vol] 7.6 10*3/uL 4.4-11.0 [facility] Work Phone: Blood erythrocytes count (nu mber/volume)on 07-06-2021 RBC (Bld) [#/Vol] 4.76 10*6/uL 4.6-6.2 [facility] Work Phone: [phone] Blood hemoglobin measurement (mass/volume)on 07-06-2021 Hemoglobin (Bld) [Mass/Vol] 14.8 g/dL 13.0-16.5 [facility] Work Phone: [phone] Blood platelet mean volumeon 07-06-2021 Platelet mean volume (Bld) [Entitic vol] 9.8 fL 6.2-12.0 [facility] Work Phone: Determination of erythrocyte mean corpuscular volume (MCV)on 07-06-2021 MCV (RBC) [Entitic vol] 94.3 fL 80-94 [facility] Work Phone: [phone] Hematocrit Auto (Bld) [Volum e fraction]on 07-06-2021 Hematocrit (Bld) [Volume fraction] 44.9 % 40-54 [facility] Work Phone: [phone] Iron measurement (mass/mass) on 07-06-2021 Iron (Unsp spec) [Mass/Mass] 120 ug/dL 65-175 [facility] Work Phone: Laboratory - Chemistry and C hemistry - challengeon 07-06-2021 ALP [Catalytic activity/Vol] 68 U/L 45-117 [facility] Work Phone: ALT [Catalytic activity/Vol] 44 U/L 16-61 [facility] Work Phone: CO2 [Moles/Vol] 28.0 mmol/L 21.0-32.0 [facility] Work Phone: [phone] Cobalamin (Vitamin B12) [Mass/Vol] 582 pg/mL 211-911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
== END | disposition home or self-care (01) ==
LOC: CVS 10:10
PROVIDERS: PCP Family Medicine; Referring Provider Family Medicine; Visit Provider Family Medicine
DX: R06.09 Other forms of dyspnea (principal)
CPT/HCPCS: 93017; 93350